=== PATIENT | female | born 1950 | race Caucasian/White ===

== ENCOUNTER → 2016-08-28 | Outpatient (CLI) | payer OTHER | LOC: LAB.O 12:07 | PROVIDERS: ATTEND Orthopaedic Surgery | DX: M25.562 Pain in left knee (principal); M25.462 Effusion, left knee; M17.12 Unilateral primary osteoarthritis, left knee ==

== ENCOUNTER → 2020-01-13 | Outpatient (CLI) | payer OTHER | LOC: LAB.O 10:37 | PROVIDERS: ATTEND Nurse Practitioner Family | DX: I48.91 Unspecified atrial fibrillation (principal); R60.9 Edema, unspecified ==